=== PATIENT | female | born 1955 | race American Indian/Alaskan Native ===

== ENCOUNTER 2019-08-03 15:00 | Emergency (ER) | payer BC ==
--- NOTE | 2019-08-03 16:08 | Emergency Department Report ---
Suture/Staple Removal - [facility] Chief Complaint: Laceration/Recheck/Suture Stated Complaint: RT EAR SUTURE REMOVAL Time Seen by Provider: 08/03/19 15:56 When Sutures or [place] Placed: 11 days Wound Location: right ear suture removal ED Review of Systems ROS: Stated complaint: RT EAR SUTURE REMOVAL Other details as noted in HPI ED Past Medical Hx - Past Medical History Previous Medical History?: Yes Hx Dementia: Yes ("late stage") - Surgical History Past Surgical History?: No Suture Removal Exam - Exam General: Vital signs noted. No distress. Alert and acting appropriately. Other Systems: All other systems reviewed and are unremarkable. ED Recheck MDM - Medical Decision Making pt had a laceration to the right ear went to [facility] and had a suture repair. had a slip and fall and hit the nightstand. no fever, no erythema, no increased warmth, no drainage, no pain. hx of dementia, history given by pts daughter Critical care attestation.: If time is entered above; I have spent that time in minutes in the direct care of this critically ill patient, excluding procedure time. ED Disposition Clinical Impression: Visit for suture removal Disposition: DC-01 TO HOME OR SELFCARE Is pt being admited?: No Does the pt Need Aspirin: No Condition: Stable Instructions: Suture Removal (ED) Additional Instructions: please continue to keep area clean and dry. wash with soap and water and immediately dry. no hot tub or pool. follow up with a primary care doctor in the next 3-5 days. return to the emergency room for any new or worsening symptoms. Referrals: PRIMARY CARE, [Primary Care Provider] - 3-5 Days Time of Disposition: 16:11 Print Language: BENGALI
== END 2019-08-03 16:54 | disposition home or self-care (01) ==
LOC: ED 15:00
DX: Z48.02 Encounter for removal of sutures (principal)